=== PATIENT | male | born 1950 | race Caucasian/White ===

== ENCOUNTER 2021-10-03 14:54 | Emergency (ER) | payer MEDICARE, OTHER ==
[~2021-10-03] VITALS: Ht 190.5 cm; Wt 113.4 kg
[~2021-10-03 14:54] MED LIST: HYDACE5325 PO; NEOPOLHCSU AS
== END 2021-10-03 18:05 | disposition home or self-care (01) ==
LOC: ER 14:54
DX: S80.01XA Contusion of right knee, initial encounter (principal); X58.XXXA Exposure to other specified factors, initial encounter
CPT/HCPCS: 73562-RT; 93971; 99283-25

== ENCOUNTER 2023-03-05 07:03 | Day surgery (SDC) | payer OTHER ==
[~2023-03-05] VITALS: Ht 190.5 cm; Wt 112.5 kg
[2023-03-05] VITALS (11 sets, daily range): BP systolic 93–121; BP diastolic 50–79
--- NOTE | 2023-03-05 07:46 | NUR ---
Pre-Op teaching done. Pt verbalizes understanding. Patient States Post-Procedure ride home has been arranged. History, Chart, Medications and Allergies reviewed before start of procedure.Patient confirms NPO status and agrees with scheduled surgery.
--- NOTE | 2023-03-05 08:36 | NUR ---
03/05/23 0836 Sy Dias HISTORY, CHART, MEDICATIONS AND ALLERGIES REVIEWED BEFORE START OF PROCEDURE. PATIENT CONFIRMS NPO STATUS AND AGREES WITH SCHEDULED PROCEDURE. 3-LEAD EKG REVIEWED WITH PHYSICIAN PRIOR TO START OF PROCEDURE. MONITOR INTACT WITH CONTINUOUS PULSE OXIMETRY,CAPNOGRAPHY, 3-LEAD EKG, INTERMITTENT BP. SUPPLEMENTAL O2 TO BE TITRATED THROUGHOUT PROCEDURE TO MAINTAIN O2 SATURATION ABOVE 90%. PATIENT DETERMINED TO BE ASA APPROPRIATE FOR PROPOFOL SEDATION PRIOR TO START OF PROCEDURE BY
--- NOTE | 2023-03-05 09:30 | NUR ---
Discharge instructions reviewed with patient. Patient verbalizes understanding. Copy given to patient to take home. Patient States Post-Procedure ride home has been arranged. Discharged via wheelchair to private car for ride home.
== END 2023-03-05 09:28 | disposition home or self-care (01) ==
LOC: ORSCMMR 07:03 → ORD 08:30 → ORSCMMR 09:28
PROVIDERS: Internal Medicine Gastroenterology
PROC: 0DBN8ZX Excision of Sigmoid Colon, Via Natural or Artificial Opening Endoscopic, Diagnostic (ICD-10-PCS; principal; 2023-03-05 08:30)
PROC: 0DBK8ZX Excision of Ascending Colon, Via Natural or Artificial Opening Endoscopic, Diagnostic (ICD-10-PCS; principal; 2023-03-05 08:30)
DX: Z12.11 Encounter for screening for malignant neoplasm of colon (principal); Z80.0 Family history of malignant neoplasm of digestive organs; D12.2 Benign neoplasm of ascending colon; K63.5 Polyp of colon
CPT/HCPCS: 88305; J2704; J7120

== ENCOUNTER → 2024-08-18 | Outpatient (CLI) | payer OTHER ==
[2024-08-18 17:18] LABS: BASOPHILS ABSOLUTE AUTO 0.08 K/mm3 (0.00-0.23); BASOPHILS PERCENT AUTO 1 % (0-2); EOSINOPHILS ABSOLUTE AUTO 0.19 K/mm3 (0.00-0.68); EOSINOPHILS PERCENT AUTO 3 % (0-6); Hematocrit 44.2 % (37.0-53.0); Hemoglobin 14.7 g/dL (13.5-17.5); IMMATURE GRAN ABSOLUTE AUTO 0.03 K/mm3 (0.00-0.10); IMMATURE GRAN PERCENT AUTO 0 % (0-1); LYMPHOCYTES PERCENT AUTO 24 % (21-46); MONOCYTES PERCENT AUTO 13 % (4-13); Mean Corpuscular HGB 30.2 pg (26.0-34.0); Mean Corpuscular HGB Conc 33.3 g/dL (31.5-36.5); Mean Corpuscular Volume 91 fL (80-100); Mean Platelet Volume 9.8 fL (9.1-12.4); NEUTROPHILS ABSOLUTE AUTO 4.13 K/mm3 (1.96-9.15); NEUTROPHILS PERCENT AUTO 59 % (41-73); Platelet Count 248 K/mm3 (150-400); RDW Coefficient Variation 12.7 % (11.7-14.2); Red Blood Cell Count 4.87 M/mm3 (4.30-5.90); White Blood Cell Count 7.03 K/mm3 (4.00-11.30)
[2024-08-18 19:27] LABS: LDL/HDL RATIO 2.2; Prostate Specific Antigen 0.838 ng/mL (0.000-4.000)
[2024-08-18 19:28] LABS: Alanine Aminotransfer (ALT/SGP 25 U/L (12-78); Albumin, Blood 3.7 g/dL (3.4-5.0); Albumin/Globulin Ratio 0.9 (0.8-1.8); Alk Phos 61 U/L (50-136); Anion Gap 13 mmol/L (3-11); Aspartate Aminotrans (AST/SGOT 28 U/L (12-37); Bilirubin, Total 0.4 mg/dL (0.1-1.0); Blood Urea Nitrogen 16 mg/dL (8-24); Bun/Creatinine Ratio 18.5 (12.0-20.0); CO2, Blood 26 mmol/L (21-32); Calcium, Blood 8.9 mg/dL (8.5-10.1); Chloride, Blood 107 mmol/L (98-108); Cholesterol 203 mg/dL (50-200); Creatinine, Blood 0.87 mg/dL (0.60-1.20); Globulin, Blood 4.2 g/dL (2.2-4.0); Glomerular Filtration Rate 92 (60-); Glucose, Blood 97 mg/dL (70-99); HDL Cholesterol 51 mg/dL (>39); Low Density Lipoprotein Chol 111 mg/dL (0-110); Potassium, Blood 4.6 mmol/L (3.5-5.5); Sodium, Blood 141 mmol/L (136-145); Total Protein, Blood 7.9 g/dL (6.4-8.2); Triglycerides 203 mg/dL (30-160); Very Low Density Lipoprot Chol 40 mg/dL (6-32)
== END | disposition home or self-care (01) ==
LOC: LAB 16:00 → LAB SHORT 16:00
PROVIDERS: Nurse Practitioner Family
DX: Z12.5 Encounter for screening for malignant neoplasm of prostate (principal); E78.5 Hyperlipidemia, unspecified
CPT/HCPCS: 80053; 80061; 85025; G0103

== ENCOUNTER 2025-03-17 11:16 | Day surgery (SDC) | payer OTHER ==
[~2025-03-17] VITALS: Ht 190.5 cm; Wt 114.0 kg
[~2025-03-17 11:16] MED LIST changes: +EPINEPhrine HCl 1 MG/ML 1ML Amp ONE; +Lactated Ringer's 1,000 ML IV ONE
[2025-03-17] MEDS ORDERED: FentaNYL Citrate 50 MCG/ML 2 ML Injection ONE ×2 (11:21→12:36)
[2025-03-17] MEDS ORDERED: Midazolam HCl 1MG / ML 2ML Vial ONE (11:21)
[2025-03-17] MEDS ORDERED: propofoL 20 ML IV ONE (11:21)
[2025-03-17] MEDS ORDERED: Ondansetron HCl 2 MG / ML 2ML Vial ONE (11:24)
[2025-03-17] MEDS ORDERED: Dexamethasone Sod Phos 10 MG/ML 1ML VIAL ONE (11:24)
[2025-03-17] MEDS ORDERED: CeFAZolin Sodium 2,000 MG VIAL ONE (11:28)
[2025-03-17] MEDS ORDERED: Lactated Ringer's 1,000 ML IV ONE (11:43)
[2025-03-17] MEDS ORDERED: Lidocaine 1%-Epineph 1:200000 30 ML SDV XX ONE (11:49)
[2025-03-17] MEDS ORDERED: Ketorolac Tromethamine 30mg Vial ONE (11:59)
[2025-03-17] MEDS ORDERED: ePHEDrine Sulfate 50 MG/ML 1ML Injection ONE (12:04)
[2025-03-17] MEDS ORDERED: Phenylephrine HCl 100 MCG/ML-NS 10MLSYR (1MG/10ML) ONE (12:08)
--- NOTE | 2025-03-17 12:49 | NUR ---
03/17/25 1249 FELECIA JAVIER PT WAKES EASILY BUT ALSO FALLS ASLEEP QUICKLY. DENIES PAIN AND NAUSEA. WATCHING O2 SAT WHEN HE FALLS ASLEEP, O2 SAT DECREASES. O2 PLACED ON PT NOW O2 SAT DROPPED TO 91%. CURRENTLY ON 10L VIA FACE TENT. SATING 97%
[2025-03-17 13:04] VITALS: BP 124/80
--- NOTE | 2025-03-17 13:50 | NUR ---
03/17/25 1350 FELECIA JAVIER PT CONTINUES TO DENY PAIN AND NAUSEA. DECLINES PO PAIN MEDICATION. HE WILL STOP AT [facility] TO [employer] SUPERVISOR HIS RX.
== END 2025-03-17 14:10 | disposition home or self-care (01) ==
LOC: ORSCSDS 11:16
PROVIDERS: Orthopaedic Surgery
PROC: 0SBD4ZZ Excision of Left Knee Joint, Percutaneous Endoscopic Approach (ICD-10-PCS; principal; 2025-03-17 12:30)
DX: S83.242A Other tear of medial meniscus, current injury, left knee, initial encounter (principal); M94.262 Chondromalacia, left knee; G47.33 Obstructive sleep apnea (adult) (pediatric); K21.9 Gastro-esophageal reflux disease without esophagitis; Z87.891 Personal history of nicotine dependence; E66.9 Obesity, unspecified; Z68.36 Body mass index [BMI] 36.0-36.9, adult
CPT/HCPCS: J0171; J0690; J1100; J1885; J2250; J2371; J2405; J2704; J3010; J7120